=== PATIENT | female | born 1990 | race Hispanic/Latino ===

== ENCOUNTER 2018-05-07 17:54 | Emergency (ER) | payer SELFPAY ==
[2018-05-07] MEDS ORDERED: Ibuprofen 200 MG TAB ONE (19:37)
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
== END 2018-05-07 20:02 | disposition home or self-care (01) ==
LOC: ERS 17:54
DX: M25.561 Pain in right knee (principal); J45.909 Unspecified asthma, uncomplicated; F17.210 Nicotine dependence, cigarettes, uncomplicated; F41.9 Anxiety disorder, unspecified; Y04.8XXA Assault by other bodily force, initial encounter

== ENCOUNTER 2023-03-20 19:46 | Emergency (ER) | payer SELFPAY ==
[2023-03-20] MEDS ORDERED: Meclizine HCl 25 MG TAB ONE (21:02)
[2023-03-20] MEDS ORDERED: Ketorolac Tromethamine 30 MG/ML VIAL ONE (22:24)
== END 2023-03-20 22:45 | disposition home or self-care (01) ==
LOC: ERS 19:46
DX: R42 Dizziness and giddiness (principal)
CPT/HCPCS: 96372; 99283; J1885